=== PATIENT | male | born 2000 | race Caucasian/White ===

== ENCOUNTER 2022-03-20 22:48 | Emergency (ER) | payer OTHER, MEDICAID ==
[2022-03-21] MEDS ORDERED: OLANZapine 5 MG TAB ONE (07:59)
[2022-03-21] MEDS ORDERED: lamoTRIgine 25 MG TAB PO SCH (09:00)
[2022-03-21] MEDS ORDERED: OLANZapine 5 MG TAB PO SCH (09:00)
[2022-03-21] MEDS ORDERED: OXcarbazepine 300 MG TAB PO SCH (09:00)
[2022-03-21] MEDS ORDERED: risperiDONE 1 MG TAB ONE ×2 (10:05→20:56)
[2022-03-21] MEDS ORDERED: risperiDONE 1 MG TAB PO SCH (21:00)
== END 2022-03-22 07:00 ==
LOC: ERS 22:48
DX: R45.851 Suicidal ideations (principal); F91.9 Conduct disorder, unspecified
CPT/HCPCS: 99285

== ENCOUNTER 2022-05-12 08:57 | Outpatient (CLI) | payer OTHER, MEDICAID | END 2022-05-12 08:58 | disposition home or self-care (01) | LOC: CT 08:57 | PROVIDERS: ATTEND Psychiatry & Neurology Neurology | DX: G40.209 Localization-related (focal) (partial) symptomatic epilepsy and epileptic syndromes with complex partial seizures, not intractable, without status epilepticus (principal); J98.4 Other disorders of lung | CPT/HCPCS: 70450 ==

== ENCOUNTER 2022-06-28 18:07 | Emergency (ER) | payer OTHER, MEDICAID ==
[2022-06-28 19:30] LABS: Bilirubin Negative (Negative); Blood, Urine Negative (Negative); Clarity Clear (Clear); Glucose, Urine (Dipstick) Normal (Negative); Ketone, Urine Negative (Negative); Leukocyte Negative Leu/uL (Negative); Nitrite Negative (Negative); Protein, Urine (Dipstick) 20 mg/dL (Neg-Trace); Specific Gravity, Urine 1.035 (1.002-1.036); Urobilinogen Normal mg/dL (Less than 2)
[2022-06-28 19:31] LABS: #Lymphocytes 3.2 thou/uL (1.20-3.40); #Monocytes 0.7 thou/uL (0.11-0.59); #Neutrophils 5.2 thou/uL (1.40-6.50); %Basophils 0.3 % (0.0-1.0); %Eosinophils 0.5 % (0.0-10.0); %Lymphocytes 35.3 % (21.0-51.0); %Monocytes 7.5 % (0.0-10.0); %Neutrophils 56.4 % (42.0-75.0); Hemoglobin 14.6 g/dL (14.0-18.0); Mean Corpuscular HGB CONC 34.9 g/dL (32.0-36.0); Mean Corpuscular Hemoglobin 33.2 pg (27.0-31.0); Mean Corpuscular Volume 95.1 fl (78.0-98.0); Mean Platelet Volume 7.2 fL (7.4-10.4); Platelet Count 187 10x3/uL (130-400); RBC Distribution Width 11.2 % (11.5-14.5); White Blood Cell (WBC) Count 9.2 10x3/uL (4.8-10.8)
[2022-06-28 19:45] LABS: Amphetamine Not Detected (NotDetected); Barbiturates Screen Not Detected (NotDetected); Benzodiazepine Screen Not Detected (NotDetected); Cocaine Metabolite Screen Not Detected (NotDetected); Methadone Not Detected (NotDetected); Methamphetamine Not Detected (NotDetected); Opiate Screen Not Detected (NotDetected); Oxycodone Screen Not Detected (NotDetected); Phencyclidine (PCP) Not Detected (NotDetected); THC/Cannabinoid Screen Not Detected (NotDetected); Tricyclic Screen Not Detected (NotDetected)
[2022-06-28 19:53] LABS: ALT (SGPT) Less than 7 U/L (8-55); AST (SGOT) 11 U/L (5-34); Acetaminophen Less than 10.0 mcg/mL (10.0-30.0); Albumin 4.7 g/dL (3.5-5.0); Alcohol Less than 10 mg/dL (Less than 10); Alkaline Phosphatase 58 U/L (40-110); Anion Gap 13 mmol/L (10-20); BUN (Urea Nitrogen) 17 mg/dL (8.9-20.6); Bilirubin, Total 0.3 mg/dL (0.2-1.2); Calc. Creatinine Clearance 0 mL/min (70-130); Calcium 9.3 mg/dL (7.8-10.44); Carbon Dioxide 26 mmol/L (22-29); Chloride 104 mmol/L (98-107); Estimated GFR 131; Globulin 2.6 g/dL (2.4-3.5); Glucose 78 mg/dL (70-105); Potassium 3.3 mmol/L (3.5-5.1); Protein, Total 7.3 g/dL (6.0-8.3); Salicylate Less than 8.0 mg/dL (15.0-30.0); Sodium 140 mmol/L (136-145)
[2022-06-29] MEDS ORDERED: risperiDONE 3 MG TAB PO SCH (01:00)
[2022-06-29] MEDS ORDERED: Sertraline 100 MG TAB PO SCH (18:30)
[2022-06-29] MEDS ORDERED: OXcarbazepine 300 MG TAB PO SCH (18:30)
[2022-06-29] MEDS ORDERED: lamoTRIgine 25 MG TAB PO SCH (18:30)
[2022-06-29] MEDS ORDERED: OLANZapine 5 MG TAB ONE (18:37)
[2022-06-29] MEDS ORDERED: risperiDONE 1 MG TAB ONE (18:37)
[2022-06-30] MEDS ORDERED: risperiDONE 1 MG TAB PO SCH ×2 (08:15→21:45)
[2022-06-30] MEDS ORDERED: OXcarbazepine 300 MG TAB PO SCH (09:00)
[2022-06-30] MEDS ORDERED: risperiDONE 1 MG TAB ONE ×2 (14:25→21:44)
[2022-07-01] MEDS ORDERED: risperiDONE 1 MG TAB ONE (10:29)
[2022-07-01] MEDS ORDERED: lamoTRIgine 25 MG TAB PO SCH (10:45)
[2022-07-01] MEDS ORDERED: risperiDONE 3 MG TAB PO SCH (21:00)
[2022-07-01] MEDS ORDERED: Sertraline 100 MG TAB PO SCH (21:00)
== END 2022-07-02 08:41 | disposition home or self-care (01) ==
LOC: ERS 18:07
DX: F79 Unspecified intellectual disabilities (principal)
CPT/HCPCS: 36415; 80053; 80306; 80307; 81003; 85025; 99285

== ENCOUNTER 2023-07-19 15:09 | Emergency (ER) | payer OTHER, MEDICAID ==
[2023-07-19 15:43] LABS: Bacteria/HPF None Seen HPF (None Seen); Bilirubin Negative (Negative); Blood, Urine Negative (Negative); CAUTI Indications for Culture Dysuria,urgency,freq; Glucose, Urine (Dipstick) Normal (Negative); Ketone, Urine Negative (Negative); Leukocyte Negative Leu/uL (Negative); Nitrite Negative (Negative); Protein, Urine (Dipstick) Negative (Neg-Trace); RBC/HPF None Seen HPF (0-3); Specific Gravity, Urine 1.028 (1.002-1.036); Squamous Epithelial None Seen HPF (0-3); Urobilinogen Normal mg/dL (Less than 2); WBC/HPF 0-3 HPF (0-3)
[2023-07-19 15:44] LABS: Clarity Cloudy (Clear)
[2023-07-19 15:46] LABS: Amphetamine Not Detected (NotDetected); Barbiturates Screen Not Detected (NotDetected); Benzodiazepine Screen Not Detected (NotDetected); Cocaine Metabolite Screen Not Detected (NotDetected); Methadone Not Detected (NotDetected); Methamphetamine Not Detected (NotDetected); Opiate Screen Not Detected (NotDetected); Oxycodone Screen Not Detected (NotDetected); Phencyclidine (PCP) Not Detected (NotDetected); THC/Cannabinoid Screen Not Detected (NotDetected); Tricyclic Screen Not Detected (NotDetected)
[2023-07-19 16:00] LABS: Urine Culture Reflex No No
[2023-07-19 16:01] LABS: #Eosinphils 0.1 thou/uL (0.0-0.7); #Monocytes 0.7 thou/uL (0.11-0.59); #Neutrophils 4.9 thou/uL (1.40-6.50); %Basophils 0.5 % (0.0-1.0); %Eosinophils 0.6 % (0.0-10.0); %Lymphocytes 31.4 % (21.0-51.0); %Monocytes 8.4 % (0.0-10.0); %Neutrophils 58.9 % (42.0-75.0); Hematocrit 40.1 % (42.0-52.0); Hemoglobin 13.8 g/dL (14.0-18.0); Mean Corpuscular HGB CONC 34.4 g/dL (32.0-36.0); Mean Corpuscular Hemoglobin 31.6 pg (27.0-31.0); Mean Corpuscular Volume 91.8 fl (78.0-98.0); Mean Platelet Volume 8.9 fL (7.4-10.4); Platelet Count 217 10x3/uL (130-400); RBC Distribution Width 11.6 % (11.5-14.5); Red Blood Cell (RBC) Count 4.37 mill/uL (4.70-6.10); White Blood Cell (WBC) Count 8.4 10x3/uL (4.8-10.8)
[2023-07-19 16:24] LABS: Acetaminophen Less than 10 mcg/mL (10.0-30.0); Alcohol Less than 10.0 mg/dL (Less than 10); Salicylate Less than 8.0 mg/dL (15.0-30.0)
[2023-07-19 16:27] LABS: ALT (SGPT) 16 U/L (8-55); AST (SGOT) 15 U/L (5-34); Albumin 4.4 g/dL (3.5-5.0); Alkaline Phosphatase 69 U/L (40-110); Anion Gap 12 mmol/L (10-20); BUN (Urea Nitrogen) 15 mg/dL (8.9-20.6); Bilirubin, Total 0.2 mg/dL (0.2-1.2); Calc. Creatinine Clearance 0 mL/min (70-130); Calcium 9.3 mg/dL (7.8-10.44); Carbon Dioxide 26 mmol/L (22-29); Chloride 106 mmol/L (98-107); Estimated GFR 129; Globulin 2.8 g/dL (2.4-3.5); Glucose 95 mg/dL (70-105); Potassium 4.5 mmol/L (3.5-5.1); Protein, Total 7.2 g/dL (6.0-8.3); Sodium 139 mmol/L (136-145)
[2023-07-20] MEDS ORDERED: OLANZapine 5 MG TAB ONE (02:57)
[2023-07-20] MEDS ORDERED: Sertraline 100 MG TAB ONE (03:00)
[2023-07-20] MEDS ORDERED: lamoTRIgine 25 MG TAB PO SCH ×2 (03:00→09:00)
[2023-07-20] MEDS ORDERED: risperiDONE 1 MG TAB ONE (03:01)
[2023-07-20] MEDS ORDERED: risperiDONE 1 MG TAB PO SCH (07:00)
[2023-07-20] MEDS ORDERED: OLANZapine 5 MG TAB PO SCH (09:00)
[2023-07-20] MEDS ORDERED: OXcarbazepine 300 MG TAB PO SCH (09:00)
[2023-07-20] MEDS ORDERED: risperiDONE 0.25 MG TAB PO SCH (10:00)
[2023-07-20] MEDS ORDERED: Sertraline 100 MG TAB PO SCH (21:00)
== END 2023-07-20 09:34 ==
LOC: ERS 15:09 → EEVIPCON 15:09 → ERS 07-20 09:34
DX: R45.850 Homicidal ideations (principal)
CPT/HCPCS: 36415; 80053; 80306; 80307; 81001; 85025; 99285

== ENCOUNTER 2024-04-03 19:04 | Emergency (ER) | payer MEDICAID, OTHER ==
[2024-04-03 19:43] LABS: #Basophils 0.05 10x3/uL (0.0-0.2); %Basophils 0.6 % (0.0-1.0); %Eosinophils 0.8 % (0.0-10.0); %Lymphocytes 30.1 % (21.0-51.0); %Monocytes 7.9 % (0.0-10.0); %Neutrophils 58.8 % (42.0-75.0); Hematocrit 40.5 % (42.0-52.0); Hemoglobin 13.6 g/dL (14.0-18.0); Mean Corpuscular HGB CONC 33.6 g/dL (32.0-36.0); Mean Corpuscular Hemoglobin 31.7 pg (27.0-31.0); Mean Corpuscular Volume 94.4 fL (78.0-98.0); Mean Platelet Volume 8.2 fL (7.4-10.4); Platelet Count 304 10x3/uL (130-400); RBC Distribution Width 11.9 % (11.5-14.5); Red Blood Cell (RBC) Count 4.29 mill/uL (4.70-6.10)
[2024-04-03 19:58] LABS: ALT (SGPT) 29 U/L (8-55); ALT (SGPT) 30 U/L (8-55); AST (SGOT) 17 U/L (5-34); AST (SGOT) 18 U/L (5-34); Acetaminophen Less than 10 mcg/mL (Less than 10); Albumin 3.9 g/dL (3.5-5.0); Alcohol Less than 10.0 mg/dL (Less than 10); Alkaline Phosphatase 57 U/L (40-110); Alkaline Phosphatase 59 U/L (40-110); Anion Gap 12 mmol/L (10-20); Anion Gap 15 mmol/L (10-20); BUN (Urea Nitrogen) 11 mg/dL (8.9-20.6); Bilirubin, Total 0.2 mg/dL (0.2-1.2); Calc. Creatinine Clearance 0 mL/min (70-130); Calcium 9.1 mg/dL (7.8-10.44); Calcium 9.2 mg/dL (7.8-10.44); Carbon Dioxide 20 mmol/L (22-29); Carbon Dioxide 23 mmol/L (22-29); Chloride 101 mmol/L (98-107); Chloride 102 mmol/L (98-107); Estimated GFR 128; Estimated GFR 129; Globulin 3.4 g/dL (2.4-3.5); Glucose 88 mg/dL (70-105); Potassium 3.9 mmol/L (3.5-5.1); Protein, Total 7.3 g/dL (6.0-8.3); Protein, Total 7.4 g/dL (6.0-8.3); Salicylate Less than 8.0 mg/dL (Less than 8.0); Sodium 132 mmol/L (136-145); Sodium 133 mmol/L (136-145)
[2024-04-04] MEDS ORDERED: risperiDONE 1 MG TAB ONE (07:24)
[2024-04-04] MEDS ORDERED: Sertraline 25 MG TAB ONE (07:24)
[2024-04-04] MEDS ORDERED: OXcarbazepine 300 MG TAB PO SCH (07:45)
[2024-04-04] MEDS ORDERED: lamoTRIgine 25 MG TAB PO SCH (07:45)
== END 2024-04-04 11:53 | disposition home or self-care (01) ==
LOC: ERS 19:04
DX: F43.20 Adjustment disorder, unspecified (principal); F84.9 Pervasive developmental disorder, unspecified; F70 Mild intellectual disabilities; G40.909 Epilepsy, unspecified, not intractable, without status epilepticus; G80.9 Cerebral palsy, unspecified; Z79.899 Other long term (current) drug therapy
CPT/HCPCS: 36415; 80053; 80307; 84443; 99285

== ENCOUNTER 2024-07-18 17:00 | Emergency (ER) | payer OTHER ==
[2024-07-18 18:31] LABS: #Basophils Less than 0.03 10x3/uL (0.0-0.2); %Basophils 0.3 % (0.0-1.0); %Eosinophils 1.2 % (0.0-10.0); %Lymphocytes 35.9 % (21.0-51.0); %Monocytes 8.4 % (0.0-10.0); %Neutrophils 53.7 % (42.0-75.0); Hematocrit 38.6 % (42.0-52.0); Hemoglobin 13.2 g/dL (14.0-18.0); Mean Corpuscular HGB CONC 34.2 g/dL (32.0-36.0); Mean Corpuscular Hemoglobin 31.6 pg (27.0-31.0); Mean Corpuscular Volume 92.3 fL (78.0-98.0); Mean Platelet Volume 8.5 fL (7.4-10.4); Platelet Count 198 10x3/uL (130-400); RBC Distribution Width 11.9 % (11.5-14.5); Red Blood Cell (RBC) Count 4.18 mill/uL (4.70-6.10)
[2024-07-18 18:51] LABS: ALT (SGPT) 9 U/L (Less than 45); AST (SGOT) 14 U/L (11-34); Albumin 4.3 g/dL (3.1-4.5); Alkaline Phosphatase 65 U/L (40-110); Anion Gap 11 mmol/L (10-20); BUN (Urea Nitrogen) 14 mg/dL (8.9-20.6); Bilirubin, Total 0.2 mg/dL (0.3-1.2); Calc. Creatinine Clearance 0 mL/min (70-130); Carbon Dioxide 29 mmol/L (22-29); Chloride 98 mmol/L (98-107); Estimated GFR 131; Globulin 2.4 g/dL (2.4-3.5); Glucose 87 mg/dL (70-105); Potassium 3.8 mmol/L (3.5-5.1); Protein, Total 6.7 g/dL (6.0-8.3); Sodium 134 mmol/L (136-145)
== END 2024-07-18 20:23 | disposition home or self-care (01) ==
LOC: ERS 17:00
DX: G40.909 Epilepsy, unspecified, not intractable, without status epilepticus (principal); R29.700 NIHSS score 0; Z79.899 Other long term (current) drug therapy
CPT/HCPCS: 36415; 70450; 80053; 80175; 80183; 85025